=== PATIENT | female | born 1955 ===

== ENCOUNTER 2017-09-10 13:33 | Emergency (ER) | payer OTHER ==
[2017-09-10 14:00] VITALS: RESP 20
[2017-09-10 15:25] LABS: INFLUENZA A B NEGATIVE FOR FLU A/B (NEGATIVE)
--- NOTE | 2017-09-10 15:48 | C.PDOC ---
History Of Present Illness 62 yo female c/o sore throat , fever, chest congestion for 3 days. No difficulty breathing or swallowing. No chest pain, SOB, headache, and neck pain. No PMH. Time Seen by Provider: 09/10/17 14:30 Chief Complaint (Nursing): ENT Problem History Per: Patient History/Exam Limitations: no limitations Onset/Duration Of Symptoms: Days Current Symptoms Are (Timing): Still Present Location Of Pain: Throat Associated Symptoms: Fever, Sore Throat, Cough, Sputum, Nasal Congestion Past Medical History Vital Signs: Last Vital Signs Temp 99.6 F 09/10/17 15:53 Pulse 84 09/10/17 15:53 Resp 20 09/10/17 15:53 BP 101/62 09/10/17 15:53 Pulse Ox 96 09/10/17 19:41 Family History: States: No Known Family Hx - Social History Hx Alcohol Use: No Hx Substance Use: No Review Of Systems Except As Marked, All Systems Reviewed And Found Negative. Constitutional: Positive for: Fever, Other (body aches) ENT: Positive for: Nose Discharge, Throat Pain Respiratory: Positive for: Cough, Sputum Physical Exam - Physical Exam Appears: Well, Non-toxic, No Acute Distress Skin: Normal Color, Warm, Dry Head: Atraumatic, Normacephalic Eye(s): bilateral: Normal Inspection, EOMI Ear(s): Bilateral: Normal Nose: Normal Oral Mucosa: Moist Throat: Erythema, No Exudate, No Drooling Neck: Normal, Normal ROM, Supple Lymphatic: Adenopathy (submandibular lyphadenopathy) Chest: Symmetrical Cardiovascular: Rhythm Regular Respiratory: Normal Breath Sounds Gastrointestinal/Abdominal: Normal Exam, Soft, No Tenderness Back: Normal Inspection Extremity: Normal ROM Neurological/Psych: Oriented x3, Normal Speech ED Course And Treatment O2 Sat by Pulse Oximetry: 96 - Radiology CXR: Interpreted by Me, Viewed By Me, Read By Radiologist CXR Interpretation: Yes: No Acute Disease Progress Note: Discussed signs and symptoms of concern, instructed to follow up with PMD in 1-2 days or return to ER if symtpoms persist or worsen. CAse discussed and pt evaluated by Dr Piper, agreed upon plan and discharge. Disposition - Disposition Referrals: Mario Hu MD [Non-Staff] - Disposition: HOME/ ROUTINE Disposition Time: 15:45 Condition: STABLE Additional Instructions: Follow up with your primary medical doctor or clinic in 2-5 days for further evaluation. Take medications as prescribed. Return to the emergency department at any time if symptoms persist or worsen. Prescriptions: Azithromycin [Zithromax] 250 mg PO DAILY #6 tab Guaifen/Dextromethorphan/PE [Mucinex Fast-Max Congest-Cough] 1 each PO Q6 #20 tablet Ibuprofen [Motrin] 600 mg PO Q6 PRN #20 tab PRN Reason: Pain, Mild (1-3) Mag&Al/Simet/Diphen/Lido [First Magic Mouthwash] 5 ml MM Q6 #1 kit Instructions: Pharyngitis (ED) Forms: [employer] ([place]) - Clinical Impression Clinical Impression: Bronchitis
[2017-09-10 15:54] VITALS: BP 101/62; PULSE 84; TEMP 99.6
--- NOTE | 2017-09-10 16:40 | RAD ---
HISTORY: fever COMPARISON: No prior. TECHNIQUE: Chest PA and lateral FINDINGS: LUNGS: No evidence of focal infiltrate or consolidation in the lungs. Mild hyperinflation of the lungs. PLEURA: No significant pleural effusion identified. No pneumothorax apparent. CARDIOVASCULAR: Normal. OSSEOUS STRUCTURES: No significant abnormalities. VISUALIZED UPPER ABDOMEN: Normal. OTHER FINDINGS: None. IMPRESSION: No radiographic evidence of pneumonia.
--- NOTE | 2017-09-10 16:42 | RAD ---
PROCEDURE: Radiographs of the neck (soft tissue). HISTORY: pain COMPARISON: None. TECHNIQUE: Frontal and Lateral Radiographs of the neck, optimized for soft tissue visualization. FINDINGS: SOFT TISSUES: Unremarkable. No radiopaque foreign body seen. CERVICAL SPINE: Mild degenerative disc changes associated with small osteophyte lipping noted. OTHER FINDINGS: None. IMPRESSION: Unremarkable radiographs of the soft tissues of the neck. Mild degenerative disc changes at the cervical spine
[2017-09-10 19:41] VITALS: O2SAT 96
--- NOTE | 2017-09-11 13:35 | CARD ---
APPROVED REPORT EKG Measurement Heart [id number] <Conclusion> Normal sinus rhythm Normal ECG
== END 2017-09-10 16:13 | disposition home or self-care (01) ==
LOC: C.ER 13:33
DX: J40 Bronchitis, not specified as acute or chronic (principal)